=== PATIENT | male | born 1985 | race African-American/Black ===

== ENCOUNTER 2023-10-29 10:22 | Emergency (ER) | payer OTHER ==
[2023-10-29 11:21] LABS: CORONAVIRUS COVID-19 NAA NEGATIVE (NEGATIVE); INFLUENZA A NAA POSITIVE (NEGATIVE); INFLUENZA B NAA NEGATIVE (NEGATIVE)
== END 2023-10-29 11:37 | disposition home or self-care (01) ==
LOC: MW.ED 10:22
DX: J11.1 Influenza due to unidentified influenza virus with other respiratory manifestations (principal); Z20.822 Contact with and (suspected) exposure to COVID-19
CPT/HCPCS: 0240U; 71045; 99284; 99283